=== PATIENT | female | born 1980 | race Caucasian/White ===

== ENCOUNTER 2017-11-17 09:46 | Emergency (ER) | payer SELFPAY ==
[~2017-11-17] VITALS: Ht 162.6 cm; Wt 91.0 kg
[~2017-11-17 09:46] MED LIST: ALBU17I INH; BUSP5TAB3 PO; ERYT400T4 PO; PROM6.257 PO; TOPI100 PO
[2017-11-17 09:47] VITALS: BP 139/77; PULSE 75; RESP 14; TEMP 98.2; O2SAT 98
[2017-11-17] MEDS ORDERED: ONDANSETRON ODT 4 MG TAB PO ONE (10:15)
[2017-11-17] MEDS ORDERED: OMEP20TA93 PO (11:00)
--- NOTE | 2017-11-17 11:01 | PD ---
HPI Chief Complaint: Cold / Flu Symptoms Time Seen by Provider: 10:58 Travel History International Travel<30 days: No Contact w/Intl Traveler<30days: No Traveled to known affect area: No History of Present Illness HPI 36-year-old female presents to the emergency department complaint of cough, nausea, vomiting, diarrhea 2 days. He reports chest pain only with coughing. Reports low-grade fever with MAXIMUM TEMPERATURE of 99.0. Denies nasal congestion, sore throat, ear pain. Reports feeling lethargic with decreased appetite. Last vomited at 2 AM this morning. Denies chest pain, shortness of breath, wheezing, abdominal pain. Denies hematochezia, hematemesis. Has 2 kids at home that it been tested positive for the flu. Symptoms are mild in severity. Has been taking ibuprofen and Imodium for symptom management. No known aggravating or relieving factors. Primary care provider is Dr. Landrum. Allergies as listed on the chart. History of asthma and denies exacerbation of symptoms at this time. Has no other medical complaints. No other modifying factors or associated signs and symptoms. PFSH Past Medical History Asthma: Yes Anxiety: Yes Diminished Hearing: No Migraines: Yes ?: Not LMP: 11/10/17 : 2 Para: 3 Tubal Ligation: Yes (2003) Past Surgical History Section: Yes (2000) Social History Alcohol Use: Yes (OCCAS. MIX DRINKS) Tobacco Use: No (QUIT DATE APPROX 1 MONTH AGO) Substance Use: No Allergies-Medications (Allergen,Severity, Reaction): Coded Allergies: ciprofloxacin (Verified Allergy, Severe, ANAPHYLAXIS, 11/17/17) hydroxyzine (Unverified Allergy, Mild, rash, 11/17/17) naproxen (Unverified Allergy, Mild, rash, 11/17/17) sumatriptan (Unverified Allergy, Unknown, 11/17/17) prednisone (Unverified Adverse Reaction, Intermediate, headache, 11/17/17) Reported Meds & Prescriptions Reported Meds & Active Scripts Active Zofran Odt (Ondansetron Odt) 4 Mg Tab 4 Mg SL Q8HR PRN Tessalon Perles (Benzonatate) 100 Mg Cap 100 Mg PO TID PRN Reported Omeprazole 20 Mg Tab 20 Mg PO DAILY Review of Systems Except as stated in HPI: all other systems reviewed are Neg Physical Exam Narrative GENERAL: Well-nourished, well-developed female patient, in no acute distress; afebrile, nontoxic-appearing SKIN: Warm and dry. No rash. HEAD: Atraumatic. Normocephalic. EYES: Pupils equal and round. No scleral icterus. No injection or drainage. ENT: Mucosa pink and moist. No erythema or exudates. No uvular edema. No uvular , palatal, or tonsillar deviation. Airway patent. EARS: Bilateral pinnae and external canals appear within normal limits. Bilateral tympanic membranes without erythema, dullness or perforation. NECK: Trachea midline. No lymphadenopathy. CARDIOVASCULAR: Regular rate and rhythm. No murmur appreciated. RESPIRATORY: No accessory muscle use. Clear to auscultation. Breath sounds equal bilaterally. No retractions or tachypnea. GASTROINTESTINAL: Abdomen soft, non-tender, nondistended. Hepatic and splenic margins not palpable. Bowel sounds are active 4 quadrants. MUSCULOSKELETAL: No obvious deformities. No clubbing. No cyanosis. No edema. NEUROLOGICAL: Awake and alert. Oriented 3. No obvious cranial nerve deficits. Motor grossly within normal limits. Normal speech. Moves all extremities. 5/5 strength to all extremities. PSYCHIATRIC: Appropriate mood and affect; insight and judgment normal. Data Data Last Documented VS Vital Signs Date Time Temp Pulse Resp B/P (MAP) Pulse Ox O2 Delivery O2 Flow Rate FiO2 11/17/17 09:47 98.2 75 14 139/77 (97) 98 Orders Orders Influenzae A/B Antigen (11/17/17 10:05) Ed Urine Pregnancytest Poc (11/17/17 10:07) Oral Rehydration (11/17/17 10:07) Ondansetron Odt (Zofran Odt) (11/17/17 10:15) Chest, Single Ap (11/17/17 11:09) MDM Medical Decision Making Medical Screen Exam Complete: Yes Emergency Medical Condition: Yes Medical Record Reviewed: Yes Differential Diagnosis Gastroenteritis, influenza, pneumonia, URI, viral illness Narrative Course 36-year-old female with flulike symptoms. Reports nausea, vomiting, diarrhea. Denies abdominal pain. Physical exam is unremarkable. Patient is afebrile and nontoxic-appearing. Reports MAXIMUM TEMPERATURE of 99.0 at home. Zofran, influenza, oral hydration ordered in triage. Patient is drinking Gatorade and is tolerating it well. Chest x-ray ordered. 1058: Influenza negative. 1257: Chest x-ray unremarkable. Discussed viral illness and symptomatic management. Patient has not had any vomiting while awaiting x-ray results and she has tolerated Gatorade. Zofran and Tessalon Perles prescribed for home. Instructed patient to follow up with primary care provider. Patient verbalizes understanding and agreement with treatment plan. Patient is medically cleared and stable for discharge. Discussed reasons to return to the emergency department. Patient agrees with treatment plan. The patients vital signs are stable and the patient is stable for outpatient follow-up and treatment. Patient discharged home, stable and in no acute distress. Diagnosis Primary Impression: Viral illness Referrals: Primary Care Physician Patient Instructions: Gastroenteritis (ED), General Instructions, Influenza (ED ), Viral Syndrome (ED) Additional Instructions: Ibuprofen or Tylenol as directed and as needed to reduce fever; may alternate ibuprofen and Tylenol as needed every 3 hours to minimize fever Take Zofran as prescribed for nausea/vomiting Increase fluid intake, starting with clear fluids; advancing to a bland diet as tolerated [facility] diet to include crackers, rice, toast, bananas as tolerated, advancing slowly to regular diet [id number] cold/flu medications as directed and as needed for symptom management Get plenty of sleep/rest Drink plenty of fluids to prevent dehydration; such as Gatorade, Powerade, Pedialyte [facility] diet to encourage nutrition such as crackers, fruit, applesauce, toast, soup etc. Use an air humidifier/turn off ceiling fans Follow-up with your primary care provider within 1 day Return immediately to the emergency department with worsening of symptoms Med/Other Pt SpecificInfo: Prescription(s) given Scripts Ondansetron Odt (Zofran Odt) 4 Mg Tab 4 MG SL Q8HR Y for Nausea/Vomiting, #6 TAB 0 Refills Prov: Tere Turk 11/17/17 Benzonatate (Tessalon Perles) 100 Mg Cap 100 MG PO TID Y for COUGH, #10 CAP 0 Refills Prov: Tere Turk 11/17/17 Disposition: 01 DISCHARGE HOME Condition: Stable Tere Turk Nov 17, 2017 11:01
[2017-11-17] MEDS ORDERED: BENZ100 PO (11:10)
[2017-11-17] MEDS ORDERED: ZOFR4TAB3 SL (11:10)
--- NOTE | 2017-11-17 11:48 | RADRPT ---
EXAM DATE/TIME: 11/17/2017 11:22 [facility] COMPARISON: No previous studies available for comparison. INDICATIONS : Cough and flu like symptoms for 2 days. MEDICAL HISTORY : None. SURGICAL HISTORY : None. ENCOUNTER: Initial ACUITY: 2 days PAIN SCORE: 2/10 LOCATION: Bilateral chest FINDINGS: A single view of the chest demonstrates the lungs to be symmetrically aerated without evidence of mas s, infiltrate or effusion. The cardiomediastinal contours are unremarkable. Osseous structures are intact. CONCLUSION: No acute disease. Sherman Sanders MD on November 17, 2017 at 11:46 Board Certified Radiologist. This report was verified electronically.
== END 2017-11-17 13:10 | disposition home or self-care (01) ==
LOC: NEPD 09:46
DX: B34.9 Viral infection, unspecified (principal)
CPT/HCPCS: 71045; 84703; 87804; 99284

== ENCOUNTER 2018-02-07 16:51 | Emergency (ER) | payer OTHER ==
[2018-02-07] MEDS: LIDOCAINE HCL 1% 20 ML VIAL (18:49)
[2018-02-07] MEDS: KETOROLAC TROMETHAMINE 30 MG/ML (IVP) VIAL IVP (19:03)
[2018-02-07] MEDS: CLINDAMYCIN INJ 600 MG in SODIUM CHLORIDE 0.9% INJ 100 ML IV (19:04)
[2018-02-07] MEDS: ACETAMINOPHEN/HYDROcodone 325 MG/5 MG TAB PO (19:04)
[2018-02-07 19:40] LABS: AUTOMATED NEUTROPHIL # 7.2 TH/MM3 (1.8-7.7); BASOPHIL % 0.4 % (0.0-2.0); EOSINOPHIL # 0.4 TH/MM3 (0-0.4); EOSINOPHIL % 3.8 % (0.0-4.0); HEMATOCRIT 39.7 % (35.0-46.0); HEMO FLAGS DIFF FINAL; HEMOGLOBIN 13.5 GM/DL (11.6-15.3); LYMPH % 21.6 % (9.0-44.0); LYMPHOCYTE # 2.3 TH/MM3 (1.0-4.8); MEAN CELL VOLUME 82.9 FL (80.0-100.0); MEAN CORPUSCULAR HEMOGLOBIN 28.2 PG (27.0-34.0); MEAN PLATELET VOLUME 9.6 FL (7.0-11.0); MONO % 6.2 % (0.0-8.0); MONOCYTE # 0.7 TH/MM3 (0-0.9); PLATELET COUNT 175 TH/MM3 (150-450); RED BLOOD COUNT 4.79 MIL/MM3 (4.00-5.30); RED CELL DISTRIBUTION WIDTH 14.5 % (11.6-17.2); WHITE BLOOD COUNT 10.6 TH/MM3 (4.0-11.0)
[2018-02-07 19:46] LABS: ANION GAP 7 MEQ/L (5-15); BICARBONATE 25.3 MEQ/L (21.0-32.0); BLOOD UREA NITROGEN 10 MG/DL (7-18); CALCIUM 8.5 MG/DL (8.5-10.1); CHLORIDE 110 MEQ/L (98-107); CREATININE 0.77 MG/DL (0.50-1.00); GLOMERULAR FILTRATION RATE 85 ML/MIN (>89); GLUCOSE,RANDOM 100 MG/DL (74-106); POTASSIUM 3.5 MEQ/L (3.5-5.1); SODIUM (NA) 142 MEQ/L (136-145)
== END 2018-02-07 20:07 | disposition home or self-care (01) ==
LOC: NEPD 16:51
DX: L02.31 Cutaneous abscess of buttock (principal)
CPT/HCPCS: 10060; 80048; 85025; 86403; 87040; 87070; 87186; 87205; 96365; 96375; 99284-25

== ENCOUNTER 2018-02-09 17:58 | Emergency (ER) | payer OTHER ==
[~2018-02-09] VITALS: Ht 167.6 cm; Wt 91.0 kg
[~2018-02-09 17:58] MED LIST changes: -ALBU17I INH; +BACT800T5 PO; +BENZ100 PO; -BUSP5TAB3 PO; -ERYT400T4 PO; +IBUP-232 PO; +OMEP20TA93 PO; -PROM6.257 PO; -TOPI100 PO; +ZOFR4TAB3 SL
[2018-02-09 18:04] VITALS: BP 148/75; PULSE 93; RESP 20; TEMP 98.7; O2SAT 98
--- NOTE | 2018-02-09 18:14 | PD ---
HPI Chief Complaint: Wound/Suture/Staple Re-Check Time Seen by Provider: 18:12 Travel History International Travel<30 days: No Contact w/Intl Traveler<30days: No Traveled to known affect area: No History of Present Illness HPI 37-year-old female presents emergency department for packing removal from a buttock abscess placed 2 days ago. 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 She has been following all discharge instructions. Denies any fever chills. She has no other symptoms to report. PFSH Past Medical History Asthma: Yes Anxiety: Yes Diminished Hearing: No Respiratory: Yes Migraines: Yes ?: Not LMP: 02/18/18 : 2 Para: 3 Tubal Ligation: Yes (2003) Past Surgical History Section: Yes (2000) Social History Alcohol Use: Yes (OCCAS. MIX DRINKS) Tobacco Use: No (QUIT DATE APPROX 1 MONTH AGO) Substance Use: No Allergies-Medications (Allergen,Severity, Reaction): Coded Allergies: ciprofloxacin (Verified Allergy, Severe, ANAPHYLAXIS, 02/07/18) hydroxyzine (Unverified Allergy, Mild, rash, 02/07/18) naproxen (Unverified Allergy, Mild, rash, 02/07/18) sumatriptan (Unverified Allergy, Unknown, 02/07/18) prednisone (Unverified Adverse Reaction, Intermediate, headache, 02/07/18) Reported Meds & Prescriptions Reported Meds & Active Scripts Active Bactrim DS (Sulfamethoxazole-Trimethoprim) 800-160 Mg Tab 1 Tab PO BID Ibuprofen 600 Mg Tab 600 Mg PO Q6H PRN Zofran Odt (Ondansetron Odt) 4 Mg Tab 4 Mg SL Q8HR PRN Tessalon Perles (Benzonatate) 100 Mg Cap 100 Mg PO TID PRN Reported Omeprazole 20 Mg Tab 20 Mg PO DAILY Review of Systems Except as stated in HPI: all other systems reviewed are Neg Physical Exam Narrative GENERAL: Well-nourished, well-developed female patient in no acute distress SKIN: Focused skin assessment warm/dry. There is a 2 cm diameter area of erythema on the right buttock lateral to the gluteal cleft. Small part of packing is stating out. No active drainage. HEAD: Normocephalic. EYES: No scleral icterus. No injection or drainage. NECK: Supple, trachea midline. No JVD or lymphadenopathy. CARDIOVASCULAR: Regular rate and rhythm without murmurs, gallops, or rubs. RESPIRATORY: Breath sounds equal bilaterally. No accessory muscle use. GASTROINTESTINAL: Abdomen soft, non-tender, nondistended. MUSCULOSKELETAL: No cyanosis, or edema. BACK: Nontender without obvious deformity. No CVA tenderness. Data Data Last Documented VS Vital Signs Date Time Temp Pulse Resp B/P (MAP) Pulse Ox O2 Delivery O2 Flow Rate FiO2 02/09/18 18:04 98.7 93 20 148/75 (99) 98 Orders Orders Ed Discharge Order (02/09/18 18:13) MDM Medical Decision Making Medical Screen Exam Complete: Yes Emergency Medical Condition: Yes Medical Record Reviewed: Yes Differential Diagnosis Abscess recheck versus abscess worsening versus improving versus cellulitis versus erysipelas Narrative Course 37-year-old female presents emergency department for reevaluation of an abscess that had packing placed 2 days ago. The area appears to be healing. Patient appears well. Packing is removed without difficulty. She is counseled on care and agrees to return immediately with acute worsening symptoms. Diagnosis Primary Impression: Abscess packing removal Referrals: Primary Care Physician Patient Instructions: Abscess Follow-up (ED), General Instructions Additional Instructions: Continue warm soaks Continue antibiotics as already prescribed Follow-up the primary care provider Return immediately with acute worsening symptoms Med/Other Pt SpecificInfo: No Change to Meds Disposition: 01 DISCHARGE HOME Condition: Stable WhitakerLuis poncegladys [place] February 09, 2018 18:14
== END 2018-02-09 18:23 | disposition home or self-care (01) ==
LOC: NEPK 17:58
DX: Z51.89 Encounter for other specified aftercare (principal); L02.31 Cutaneous abscess of buttock; J45.909 Unspecified asthma, uncomplicated; F41.9 Anxiety disorder, unspecified; Z79.899 Other long term (current) drug therapy; Z88.1 Allergy status to other antibiotic agents; Z88.8 Allergy status to other drugs, medicaments and biological substances
CPT/HCPCS: 99281